=== PATIENT | male | born 1950 | race Caucasian/White ===

== ENCOUNTER 2021-05-29 09:53 | Outpatient (REF) | payer OTHER, MEDICAID, SELFPAY ==
--- NOTE | ~2021-05-29 | XR_ITS ---
EXAMINATION: XR FOOT, LEFT CLINICAL INFORMATION: Pain in left foot COMPARISON: None TECHNIQUE: AP, lateral, and oblique views of the left foot. FINDINGS: No acute fracture or dislocation. Severe degenerative change of the first metatarsophalangeal joint, with [id number] contact, subchondral sclerosis, subchondral cystic changes in the associated marginal osteophytes. Mild degenerative changes at the dorsal talonavicular articulation with small degenerative ossification. Tiny Achilles tendon enthesophytes. Vascular calcifications. XR/XR foot LT min 3V IMPRESSION: No acute findings. Severe first metatarsophalangeal joint arthrosis.
[2021-05-29 12:22] LABS: Alanine Aminotransferase 16 U/L (0-40); Albumin Level 4.5 g/dL (3.5-5.0); Alkaline Phosphatase 88 U/L (39-117); Anion Gap 13 (12-20); Aspartate Amino Transferase 23 U/L (5-37); Bilirubin Total 0.7 mg/dL (0.0-1.0); Blood Urea Nitrogen 24 mg/dL (9-16); Calcium 9.8 mg/dL (8.4-10.2); Carbon Dioxide 26 mmol/L (22-29); Chloride 107 mmol/L (96-108); Cholesterol 217 mg/dL; Estimated Glomerular Filt Rate > 60; Glucose Fasting 86 mg/dL (60-99); HDL Cholesterol 72 mg/dL; LDL Cholesterol Calculated 129 mg/dl; Potassium 4.8 mmol/L (3.3-5.1); Sodium 141 mmol/L (135-145); Total Protein 6.9 g/dL (6.5-8.0); Triglycerides 82 mg/dL
[2021-05-29 12:37] LABS: TSH reflex Free T4 1.96 uIU/mL (0.32-4.0)
[2021-05-30 19:06] LABS: Follicle Stimulating Hormone 5.7 mIU/mL (1.6-8.0)
[2021-06-02 19:21] LABS: Testosterone, Free 109.2 pg/mL (35.0-155.0); Testosterone, Total 966 ng/dL (250-1100)
== END 2021-05-29 09:54 | disposition home or self-care (01) ==
LOC: HO.HMGCLDS 09:53
PROVIDERS: Visit Provider Nurse Practitioner Family
DX: M79.672 Pain in left foot (principal); R53.83 Other fatigue
CPT/HCPCS: 36415; 73630; 80053; 80061; 83001; 83002; 84402; 84403; 84443

== ENCOUNTER 2022-04-04 16:03 | Outpatient (REF) | payer OTHER, MEDICAID, SELFPAY ==
--- NOTE | ~2022-04-04 | US_ITS ---
EXAMINATION: US EXTRACRANIAL CAROTID DUPLEX, BILATERAL CLINICAL INFORMATION: Cerebral infarction. COMPARISON: None TECHNIQUE: Real-time ultrasound and Doppler techniques (integrating B-mode 2-D vascular images, Doppler spectral analysis and color-flow Doppler imaging) were utilized to interrogate the extracranial carotid arteries, the vertebral arteries and proximal subclavian arteries bilaterally. The degree of stenosis is determined by criteria similar to NASCET. FINDINGS: Right Side: There is mild atherosclerotic plaque of the bifurcation/proximal ICA region. The common carotid artery peak systolic velocity (PSV) proximally is 94 cm/s and distally is 75 cm/s. The proximal internal carotid artery velocities are 61 cm/s systolic and 16 cm/s diastolic. The proximal external carotid artery PSV is 72 cm/s. The vertebral artery shows normal antegrade flow, peak velocity of 34 cm/s. The subclavian artery waveforms are normal. Left Side: There is [id number] atherosclerotic plaque of the bifurcation/proximal ICA region. The common carotid artery peak systolic velocity (PSV) proximally is 77 cm/s and distally is 87 cm/s. The proximal internal carotid artery velocities are 81 cm/s systolic and 39 cm/s diastolic. The proximal external carotid artery PSV is 85 cm/s. The vertebral artery shows normal antegrade flow, peak velocity of 51 cm/s. The subclavian artery waveforms are normal. US/US carotid duplex BI IMPRESSION: There is atherosclerosis of the carotid arteries with findings of < 50% stenosis of each proximal ICA. If there is a need to thoroughly evaluate the entire course of each ICA and intracranial vessels in this patient with history of infarction, then obtain CT angiography of the head-neck.
== END 2022-04-04 16:04 | disposition home or self-care (01) ==
LOC: HO.US 16:03
PROVIDERS: Visit Provider Nurse Practitioner Family
DX: I63.9 Cerebral infarction, unspecified (principal)
CPT/HCPCS: 93880

== ENCOUNTER 2022-04-07 10:31 | Outpatient (REF) | payer OTHER, MEDICAID, SELFPAY ==
[2022-04-07 11:16] LABS: MANUAL DIFF FLAG NO
[2022-04-07 11:20] LABS: Basophils Percent Auto 0.6 % (0-2); Eosinophils Absolute Auto 0.1 X10*3/uL (0.0-0.4); Eosinophils Percent Auto 2.2 % (0-4); Hematocrit 46.4 % (42.0-52.0); Hemoglobin 15.5 g/dl (14.0-18.0); Imm Gran Abs Auto 0.02 X10*3/uL (0.00-0.03); Imm Gran Pct Auto 0.3 % (0.0-0.4); Lymphocytes Absolute Auto 1.6 X10*3/uL (1.2-4.9); Mean Corpuscular HGB Conc 33.4 g/dl (31.0-36.0); Mean Corpuscular Volume 92.8 fL (80.0-98.0); Mean Platelet Volume 10.1 fL (9.4-12.4); Monocytes Absolute Auto 0.5 X10*3/uL (0.1-1.2); Monocytes Percent Auto 8.5 % (2-11); Neutrophils Percent Auto 63.4 % (45-73); Platelet Count 256 X10*3/uL (160-400); Red Cell Distribution Width 12.3 % (11.0-16.0); White Blood Count 6.3 X10*3/uL (4.8-10.8)
[2022-04-07 12:12] LABS: Alanine Aminotransferase 17 U/L (0-40); Albumin Level 4.5 g/dL (3.5-5.0); Alkaline Phosphatase 75 U/L (39-117); Anion Gap 13 (12-20); Aspartate Amino Transferase 23 U/L (5-37); Bilirubin Total 0.6 mg/dL (0.0-1.0); Blood Urea Nitrogen 18 mg/dL (9-16); Calcium 9.8 mg/dL (8.4-10.2); Carbon Dioxide 29 mmol/L (22-29); Chloride 104 mmol/L (96-108); Cholesterol 187 mg/dL; Estimated Glomerular Filt Rate > 60; Glucose Fasting 86 mg/dL (60-99); HDL Cholesterol 74 mg/dL; LDL Cholesterol Calculated 98 mg/dl; Potassium 4.7 mmol/L (3.3-5.1); Prostate Specific Antigen Scr 1.18 ng/mL (<0.05-4.0); Sodium 141 mmol/L (135-145); TSH reflex Free T4 0.91 uIU/mL (0.32-4.0); Total Protein 6.5 g/dL (6.5-8.0); Triglycerides 76 mg/dL
[2022-04-07 14:19] LABS: Appearance Urine Cloudy; Color Urine Yellow; Glucose Urine UA Negative (Negative); Leukocyte Esterase Urine Negative (Negative); Nitrite Urine Negative (Negative); Specific Gravity - Urine 1.015 (1.005-1.025); Urine Blood Negative (Negative); Urine Ketones Negative (Negative); Urine Protein Negative (Neg-Trace)
== END 2022-04-07 10:32 | disposition home or self-care (01) ==
LOC: HO.HMGCLDS 10:31
PROVIDERS: PCP Nurse Practitioner Family; Visit Provider Nurse Practitioner Family
DX: Z86.73 Personal history of transient ischemic attack (TIA), and cerebral infarction without residual deficits (principal); Z12.5 Encounter for screening for malignant neoplasm of prostate
CPT/HCPCS: 36415; 80053; 80061; 81003; 84153; 84443; 85025

== ENCOUNTER 2023-03-12 10:03 | Outpatient (AMB) | payer OTHER, MEDICAID, SELFPAY ==
[2023-03-12 10:56] VITALS: BP 120/70; PULSE 87; TEMP 36.3; O2SAT 97; BMI 22.9
--- NOTE | 2023-03-12 10:56 | AM.OFFWIN_ITS ---
Intake Vital Signs 03/12/23 10:56 Height 6 ft Weight 168 lb 8 oz BMI 22.9 BP 120/70 Blood Pressure Location Rt brachial Position Sitting Pulse 87 Pulse Source Pulse Oximeter Temp 97.4 F Temp Source Temporal Artery Scan Pulse Oximetry (%) 97 Oxygen Delivery Method Room Air Intake Visit Reasons: EP, constipation Intake Note: pt is here for c/o constipation Patient Tobacco Use Status: Never used Tobacco Allergies No Known Allergies Allergy (Verified 03/17/23 17:01) Medication List - Last Reconciled 03/17/23 by Raj Kauffman MD aspirin 81 mg PO DAILY 90 days hydrocortisone acetate (Anusol-HC) 25 mg ME BEDTIME sildenafil 50 mg PO DAILY PRN tramadol 50 mg PO DAILY PRN 20 days Do you need a note to return to daycare/school/sports/work: Yes HPI EP, constipation HPI Details 72-year-old male presents to the office for a sick visit. Patient is reporting symptoms of constipation and change in bowel habits. He feels something is protruding from his rectum when he has a bowel movement. It reverts back in. No blood in the stool. [facility] Medical History Impingement syndrome of left shoulder Left shoulder tendonitis Surgical History History of facial surgery History of shoulder surgery Family History Father Kidney stones Mother Smoker Heart problem Emphysema, unspecified Maternal Grandfather No problems noted. Maternal Grandmother No problems noted. Paternal Grandfather No problems noted. Paternal Grandmother No problems noted. Social History Housing: Apartment Alcohol intake: former Patient Tobacco Use Status: Never used Tobacco e-Cigarette/Vaping Use: Never Used Second Hand Smoke Exposure: Yes service: Yes Current occupational status: retired Cognitive needs: No Hearing needs: No Vision needs: No Physical Exam Vital Signs: Last Vital Signs Temp 97.4 F 03/12/23 10:56 Pulse 87 03/12/23 10:56 BP 120/70 03/12/23 10:56 Pulse Ox 97 03/12/23 10:56 Oxygen Delivery Method Room Air 03/12/23 10:56 BMI result Body Mass Index 22.9 Const General: cooperative and healthy appearing Nutritional Appearance: well nourished Orientation/consciousness: patient oriented x3 Limitations: no limitations HEENT Head: Yes normal to inspection Eyes General: appearance normal, both eyes and all related structures Neck Neck: Yes normal visual inspection Chest Chest palpation & inspection: normal palpation of entire chest wall Resp Effort & Inspection: normal respiratory effort Other: Rectal exam: Extremely tender internal exam. Patient could not tolerate a digital exam. Neuro General: patient oriented x3 Assessment & Plan Assessment & Plan (1) Rectal prolapse: Code(s): K62.3 - Rectal prolapse Plan Patient needs evaluation with the surgeon for an anoscope under sedation. Proctofoam has been prescribed. Orders: Referrals General Surgery Referral K62.3 - Rectal prolapse Medications: New hydrocortisone acetate (Anusol-HC) 25 mg ME BEDTIME 12 ea 0RF Coding Level of Care Code Est Pt Level 4 (41949) Diagnoses Rectal prolapse K62.3
== END 2023-03-12 11:38 | disposition home or self-care (01) ==
PROVIDERS: PCP Nurse Practitioner Family; Visit Provider Internal Medicine
DX: K62.3 Rectal prolapse (principal)
CPT/HCPCS: 99214